=== PATIENT | male | born 1975 | race Caucasian/White ===

== ENCOUNTER 2018-08-27 10:54 | Emergency (ER) | payer OTHER, SELFPAY ==
[2018-08-27 11:08] VITALS: BP 141/84; PULSE 62; RESP 18; TEMP 36.8; O2SAT 99; BMI 37.3
--- NOTE | 2018-08-27 12:11 | DI.RAD.S_ITS ---
PROCEDURE: XR ANKLE RT MIN 3V INDICATIONS: right ankle pain and swelling TECHNIQUE: 3 views of the ankle were acquired. COMPARISON: [facility], CR, ANKLE 2 VIEWS RIGHT, 04/04/2015, 12:08. [facility], CR, ANKLE 2 VIEWS RIGHT, 04/04/2015, 12:08. [facility], , ANKLE 3 VIEWS LEFT, 08/30/2016, 16:07. FINDINGS: Bones: Remote appearing bone fragments are seen adjacent to the distal aspect of the lateral malleolus. No additional focal bony abnormality is seen. The ankle mortise does not appear widened. The talar dome demonstrates no salvador abnormality. Plantar and Achilles calcaneal spurs are seen. Soft tissues: No significant soft tissue swelling is seen. There is a 2 mm metallic-appearing foreign body involving the posterior soft tissues, which is best seen on the lateral image. IMPRESSION: Remote appearing avulsion fractures are seen involving distal aspect of the lateral malleolus. Please correlate with focal tenderness. If it would be helpful for clinical management decision making, please consider a dedicated ankle CT or MRI for further evaluation, depending upon clinical suspicion (assuming that there is no contraindication). 2 mm metallic-appearing foreign body incidentally noted posteriorly. Dictated by: James Cordero M.D. on 08/27/2018 at 11:30 Approved by: James Cordero M.D. on 08/27/2018 at 11:32
--- NOTE | 2018-08-27 12:22 | ED.LOWEXIN ---
HPI - Extremity Injury (Lower) <Opal Johnson PA-C - Last Filed: 08/27/18 17:58> General Chief Complaint: Extremity Injury, Lower Stated Complaint: RT ANKLE INJURY Time Seen by Provider: 08/27/18 11:05 Source: patient Mode of arrival: ambulatory Limitations: no limitations History of Present Illness HPI Narrative: This 43 male states that he was carrying a box yesterday when he stepped on a wheel and inverted his right ankle. He denies falling or sustaining other injury. He states that it was quite uncomfortable yesterday, especially with trying to bear weight, but he did walk on it a little bit. Was at his desk most of the day. He states that pain felt worse last night, a little bit better this morning after resting. Pain is much worse with trying to bear weight, not so bothersome at rest. He has been taking 800 mg of ibuprofen every 8 hr. He states that pain is all around the ankle, more pronounced on the outside. He states that he can feel slight tingling across his toes at times, like waking up from sleep. He denies any weakness in the ankle or foot. He has a history of 2 surgeries on that ankle, lateral for tendon repair/shortening and reattachment, and removal of cysts and veins on the medial side. Related Data Home Medications Medication Instructions Recorded Confirmed Probiotic 1 dose PO DAILY 08/27/18 08/27/18 acyclovir 400 mg PO TID PRN 08/27/18 08/27/18 ibuprofen [Advil] 1 dose PO PRN PRN 08/27/18 08/27/18 Previous Rx's Medication Instructions Recorded epinephrine 0.3 mg IM X1 #2 syr 03/13/17 hydrocodone-acetaminophen 1 tab PO Q6H PRN #7 tab 08/27/18 meloxicam 15 mg PO DAILY #14 tab 08/27/18 Allergies Allergy/AdvReac Type Severity Reaction Status Date / Time No Known Allergies Allergy Uncoded 08/27/18 11:14 Review of Systems <Opal Johnson PA-C - Last Filed: 08/27/18 17:58> Review of Systems All systems reviewed & are unremarkable except as noted in HPI and below Exam <Opal Johnson PA-C - Last Filed: 08/27/18 17:58> Narrative Exam Narrative: GENERAL APPEARANCE: Patient sitting comfortably, in no distress. LUNGS: Clear to auscultation bilaterally. HEART: Rate and rhythm regular without murmur, normal S1 and S2, no S3 or S4. MUSCULOSKELETAL: Moderate tenderness posterior inferior to the lateral malleolus, less so over the medial malleolus. Mildly tender over the anterior ankle and Achilles, which is intact by palpation. He has full range of motion of the ankle and toes nonweightbearing, tenderness with foot plantar flexion and full inversion. No tenderness over the foot or toes. NEUROVASCULAR: Right foot sensation is grossly intact, pedal pulses 2+ DP and PT, with warm pink toes Initial Vital Signs Initial Vital Signs: Vital Signs Temperature 98.2 F 08/27/18 11:08 Pulse Rate 62 08/27/18 11:08 Respiratory Rate 18 08/27/18 11:08 Blood Pressure 141/84 H 08/27/18 11:08 Pulse Oximetry 99 08/27/18 11:08 <Olvin Villalpando DO - Last Filed: 08/27/18 18:52> Initial Vital Signs Initial Vital Signs: Vital Signs Temperature 98.2 F 08/27/18 11:08 Pulse Rate 62 08/27/18 11:08 Respiratory Rate 18 08/27/18 11:08 Blood Pressure 141/84 H 08/27/18 11:08 Pulse Oximetry 99 08/27/18 11:08 Course <Opal Johnson PA-C - Last Filed: 08/27/18 17:58> Additional Information: Patient has moderate tenderness inferior to both malleoli as well as mild tenderness across the anterior ankle and Achilles. He is not more tender at the site of concern on x-rays. I spoke with Dr. Cordero who read films, reviewed previous surgeries and he advised fractures do not appear acute. Discussed option of further imaging with patient however given previous surgeries and mechanism of injury, we elected to use ALEX wrap and keep him on crutches. He will f/u with PCP next week for recheck. Advised repeat xrays and may need further imaging if not improving by that time. Orders Ordered: ED Orders 08/27/18 12:11 XR ankle RT min 3V Stat Discontinued Medications Ibuprofen (Advil) 800 mg PO NOW ONE Stop: 08/27/18 12:35 Last Admin: 08/27/18 12:53 Dose: 800 mg Vital Signs - 8 hr 08/27/18 11:08 Temperature 98.2 F Pulse Rate 62 Respiratory Rate 18 Blood Pressure 141/84 H Pulse Oximetry 99 <Olvin Villalpando DO - Last Filed: 08/27/18 18:52> Orders Ordered: ED Orders 08/27/18 12:11 XR ankle RT min 3V Stat Discontinued Medications Ibuprofen (Advil) 800 mg PO NOW ONE Stop: 08/27/18 12:35 Last Admin: 08/27/18 12:53 Dose: 800 mg Vital Signs - 8 hr 08/27/18 11:08 Temperature 98.2 F Pulse Rate 62 Respiratory Rate 18 Blood Pressure 141/84 H Pulse Oximetry 99 MDM - Extremity Injury (Lower) <Opal Johnson PA-C - Last Filed: 08/27/18 17:58> Imaging Data ankle: Radiologist's impression: [address] [address] XRay Report Signed Patient: Ernesto Carlson TMR#: [id number] : 1975Acct:[id number] Age/Sex: 43 / MDate of Service: 08/27/18 Loc: ED Accession Number: [id number] Procedure: XR ankle RT min 3V Ordering Provider: Olvin Villalpando D.O. PROCEDURE: XR ANKLE RT MIN 3V INDICATIONS: right ankle pain and swelling TECHNIQUE: 3 views of the ankle were acquired. COMPARISON: [facility], CR, ANKLE 2 VIEWS RIGHT, 04/04/2015, 12:08. [facility], CR, ANKLE 2 VIEWS RIGHT, 04/04/2015, 12:08. [facility], CR, ANKLE 3 VIEWS LEFT, 08/30/2016, 16:07. FINDINGS: Bones: Remote appearing bone fragments are seen adjacent to the distal aspect of the lateral malleolus. No additional focal bony abnormality is seen. The ankle mortise does not appear widened. The talar dome demonstrates no salvador abnormality. Plantar and Achilles calcaneal spurs are seen. Soft tissues: No significant soft tissue swelling is seen. There is a 2 mm metallic-appearing foreign body involving the posterior soft tissues, which is best seen on the lateral image. IMPRESSION: Remote appearing avulsion fractures are seen involving distal aspect of the lateral malleolus. Please correlate with focal tenderness. If it would be helpful for clinical management decision making, please consider a dedicated ankle CT or MRI for further evaluation, depending upon clinical suspicion (assuming that there is no contraindication). 2 mm metallic-appearing foreign body incidentally noted posteriorly. Dictated by: James Cordero M.D. on 08/27/2018 at 11:30 Approved by: James Cordero M.D. on 08/27/2018 at 11:32 Discharge Plan Departure Patient Disposition: Home Clinical Impression: Ankle sprain and strain Discharge Date/Time: 08/27/18 13:45 Interventions: ED Discharge Assessment Last Done: 08/27/18 13:41 Instructions: DI for Ankle Sprain Activity Restrictions/Additional Instructions: Please return if you have any acutely worsening symptoms. Otherwise, please use the Alex wrap and crutches so that you can rest your ankle. Take the anti-inflammatory pain reliever meloxicam once daily, and you have a few hydrocodone/acetaminophen if needed (do not take those and drive as they can make you sleepy). Please set up a follow-up appointment with Dr. Plata towards the end of next week. If this is not getting better, x-rays can be repeated then. I spoke with the radiologist who looked at your x-rays today and he thinks that the abnormalities there are likely old, especially since the pain around your ankle is not just in those areas on the xray. Prescriptions: New hydrocodone-acetaminophen 5-325 mg tablet 1 tab PO Q6H PRN (Reason: acute ankle pain) Qty: 7 RF: 0 meloxicam 15 mg tablet 15 mg PO DAILY Qty: 14 RF: 0 No Action epinephrine 0.3 MG/0.3 ML auto-injector 0.3 mg IM X1 Qty: 2 RF: 3 ibuprofen [Advil] 200 mg Tablet 1 dose PO PRN PRN (Reason: pain) RF: 0 Probiotic 1 dose PO DAILY RF: 0 acyclovir 400 MG tablet 400 mg PO TID PRN (Reason: Outbreak) RF: 0 Referrals: Lucas Plata MD [Primary Care Provider] - <Olvin Villalpando DO - Last Filed: 08/27/18 18:52> Cosign ED Attending Lupisature Attestation: I was immediately available in the department for consultation. Documentation has been reviewed. I agree with assessment and plan.
--- NOTE | 2018-08-27 12:34 | ED_ITS ---
HPI - Extremity Injury (Lower) <Opal Johnson PA-C - Last Filed: 08/27/18 17:58> General Chief Complaint: Extremity Injury, Lower Stated Complaint: RT ANKLE INJURY Time Seen by Provider: 08/27/18 11:05 Source: patient Mode of arrival: ambulatory Limitations: no limitations History of Present Illness HPI Narrative: This 43 male states that he was carrying a box yesterday when he stepped on a wheel and inverted his right ankle. He denies falling or sustaining other injury. He states that it was quite uncomfortable yesterday, especially with trying to bear weight, but he did walk on it a little bit. Was at his desk most of the day. He states that pain felt worse last night, a little bit better this morning after resting. Pain is much worse with trying to bear weight, not so bothersome at rest. He has been taking 800 mg of ibuprofen every 8 hr. He states that pain is all around the ankle, more pronounced on the outside. He states that he can feel slight tingling across his toes at times, like waking up from sleep. He denies any weakness in the ankle or foot. He has a history of 2 surgeries on that ankle, lateral for tendon repair/shortening and reattachment, and removal of cysts and veins on the medial side. Related Data Home Medications Medication Instructions Recorded Confirmed Probiotic 1 dose PO DAILY 08/27/18 08/27/18 acyclovir 400 mg PO TID PRN 08/27/18 08/27/18 ibuprofen [Advil] 1 dose PO PRN PRN 08/27/18 08/27/18 Previous Rx's Medication Instructions Recorded epinephrine 0.3 mg IM X1 #2 syr 03/13/17 hydrocodone-acetaminophen 1 tab PO Q6H PRN #7 tab 08/27/18 meloxicam 15 mg PO DAILY #14 tab 08/27/18 Allergies Allergy/AdvReac Type Severity Reaction Status Date / Time No Known Allergies Allergy Uncoded 08/27/18 11:14 Review of Systems <Opal Johnson PA-C - Last Filed: 08/27/18 17:58> Review of Systems All systems reviewed & are unremarkable except as noted in HPI and below Exam <Opal Johnson PA-C - Last Filed: 08/27/18 17:58> Narrative Exam Narrative: GENERAL APPEARANCE: Patient sitting comfortably, in no distress. LUNGS: Clear to auscultation bilaterally. HEART: Rate and rhythm regular without murmur, normal S1 and S2, no S3 or S4. MUSCULOSKELETAL: Moderate tenderness posterior inferior to the lateral malleolus, less so over the medial malleolus. Mildly tender over the anterior ankle and Achilles, which is intact by palpation. He has full range of motion of the ankle and toes nonweightbearing, tenderness with foot plantar flexion and full inversion. No tenderness over the foot or toes. NEUROVASCULAR: Right foot sensation is grossly intact, pedal pulses 2+ DP and PT, with warm pink toes Initial Vital Signs Initial Vital Signs: Vital Signs Temperature 98.2 F 08/27/18 11:08 Pulse Rate 62 08/27/18 11:08 Respiratory Rate 18 08/27/18 11:08 Blood Pressure 141/84 H 08/27/18 11:08 Pulse Oximetry 99 08/27/18 11:08 <Olvin Villalpando DO - Last Filed: 08/27/18 18:52> Initial Vital Signs Initial Vital Signs: Vital Signs Temperature 98.2 F 08/27/18 11:08 Pulse Rate 62 08/27/18 11:08 Respiratory Rate 18 08/27/18 11:08 Blood Pressure 141/84 H 08/27/18 11:08 Pulse Oximetry 99 08/27/18 11:08 Course <Opal Johnson PA-C - Last Filed: 08/27/18 17:58> Additional Information: Patient has moderate tenderness inferior to both malleoli as well as mild tenderness across the anterior ankle and Achilles. He is not more tender at the site of concern on x-rays. I spoke with Dr. Cordero who read films, reviewed previous surgeries and he advised fractures do not appear acute. Discussed option of further imaging with patient however given previous surgeries and mechanism of injury, we elected to use ALEX wrap and keep him on crutches. He will f/u with PCP next week for recheck. Advised repeat xrays and may need further imaging if not improving by that time. Orders Ordered: ED Orders 08/27/18 12:11 XR ankle RT min 3V Stat Discontinued Medications Ibuprofen (Advil) 800 mg PO NOW ONE Stop: 08/27/18 12:35 Last Admin: 08/27/18 12:53 Dose: 800 mg Vital Signs - 8 hr 08/27/18 11:08 Temperature 98.2 F Pulse Rate 62 Respiratory Rate 18 Blood Pressure 141/84 H Pulse Oximetry 99 <Olvin Villalpando DO - Last Filed: 08/27/18 18:52> Orders Ordered: ED Orders 08/27/18 12:11 XR ankle RT min 3V Stat Discontinued Medications Ibuprofen (Advil) 800 mg PO NOW ONE Stop: 08/27/18 12:35 Last Admin: 08/27/18 12:53 Dose: 800 mg Vital Signs - 8 hr 08/27/18 11:08 Temperature 98.2 F Pulse Rate 62 Respiratory Rate 18 Blood Pressure 141/84 H Pulse Oximetry 99 MDM - Extremity Injury (Lower) <Opal Johnson PA-C - Last Filed: 08/27/18 17:58> Imaging Data ankle: Radiologist's impression: [address] [address] XRay Report Signed Patient: Ernesto Carlson TMR#: [id number] : 1975Acct:[id number] Age/Sex: 43 / MDate of Service: 08/27/18 Loc: ED Accession Number: [id number] Procedure: XR ankle RT min 3V Ordering Provider: Olvin Villalpando D.O. PROCEDURE: XR ANKLE RT MIN 3V INDICATIONS: right ankle pain and swelling TECHNIQUE: 3 views of the ankle were acquired. COMPARISON: [facility], CR, ANKLE 2 VIEWS RIGHT, 04/04/2015, 12:08. [facility], CR, ANKLE 2 VIEWS RIGHT, 04/04/2015, 12:08. [facility], CR, ANKLE 3 VIEWS LEFT , 08/30/2016, 16:07. FINDINGS: Bones: Remote appearing bone fragments are seen adjacent to the distal aspect of the lateral malleolus. No additional focal bony abnormality is seen. The ankle mortise does not appear widened. The talar dome demonstrates no salvador abnormality. Plantar and Achilles calcaneal spurs are seen. Soft tissues: No significant soft tissue swelling is seen. There is a 2 mm metallic-appearing foreign body involving the posterior soft tissues, which is best seen on the lateral image. IMPRESSION: Remote appearing avulsion fractures are seen involving distal aspect of the lateral malleolus. Please correlate with focal tenderness. If it would be helpful for clinical management decision making, please consider a dedicated ankle CT or MRI for further evaluation, depending upon clinical suspicion (assuming that there is no contraindication). 2 mm metallic-appearing foreign body incidentally noted posteriorly. Dictated by: James Cordero M.D. on 08/27/2018 at 11:30 Approved by: James Cordero M.D. on 08/27/2018 at 11:32 Discharge Plan Departure Patient Disposition: Home Clinical Impression: Ankle sprain and strain Discharge Date/Time: 08/27/18 13:45 Interventions: ED Discharge Assessment Last Done: 08/27/18 13:41 Instructions: DI for Ankle Sprain Activity Restrictions/Additional Instructions: Please return if you have any acutely worsening symptoms. Otherwise, please use the Alex wrap and crutches so that you can rest your ankle. Take the anti- inflammatory pain reliever meloxicam once daily, and you have a few hydrocodone/ acetaminophen if needed (do not take those and drive as they can make you sleepy ). Please set up a follow-up appointment with Dr. Plata towards the end of next week. If this is not getting better, x-rays can be repeated then. I spoke with the radiologist who looked at your x-rays today and he thinks that the abnormalities there are likely old, especially since the pain around your ankle is not just in those areas on the xray. Prescriptions: New hydrocodone-acetaminophen 5-325 mg tablet 1 tab PO Q6H PRN (Reason: acute ankle pain) Qty: 7 RF: 0 meloxicam 15 mg tablet 15 mg PO DAILY Qty: 14 RF: 0 No Action epinephrine 0.3 MG/0.3 ML auto-injector 0.3 mg IM X1 Qty: 2 RF: 3 ibuprofen [Advil] 200 mg Tablet 1 dose PO PRN PRN (Reason: pain) RF: 0 Probiotic 1 dose PO DAILY RF: 0 acyclovir 400 MG tablet 400 mg PO TID PRN (Reason: Outbreak) RF: 0 Referrals: Lucas Plata MD [Primary Care Provider] - <Olvin Villalpando DO - Last Filed: 08/27/18 18:52> Cosign ED Attending Lupisature Attestation: I was immediately available in the department for consultation. Documentation has been reviewed. I agree with assessment and plan.
[2018-08-27] MEDS: IBUPROFEN 400 MG TABLET 800 MG PO (12:53)
== END 2018-08-27 13:45 | disposition home or self-care (01) ==
PROVIDERS: Emergency Provider Internal Medicine; Family Provider Family Medicine; PCP Family Medicine
DX: S93.401A Sprain of unspecified ligament of right ankle, initial encounter (principal); W18.41XA Slipping, tripping and stumbling without falling due to stepping on object, initial encounter
CPT/HCPCS: 73610; 99282; 99283

== ENCOUNTER → 2019-06-25 09:15 | Outpatient (CLI) | payer OTHER, SELFPAY ==
[2019-06-25 09:56] LABS: Semen Sperm Prescence Post-Vas Absent (ABSENT)
== END ==
PROVIDERS: Family Provider Family Medicine; PCP Family Medicine; Visit Provider Specialist
DX: Z30.2 Encounter for sterilization (principal)
CPT/HCPCS: 89321

== ENCOUNTER → 2019-11-28 11:13 | Outpatient (CLI) | payer OTHER, SELFPAY ==
--- NOTE | 2019-11-28 13:06 | DI.CT.S_ITS ---
PROCEDURE: CT ABDOMEN PELVIS W CON INDICATIONS: Periumbilical pain TECHNIQUE: After the administration of oral and intravenous contrast, 5 mm thick sections acquired from the diaphragms to the symphysis. 5 mm thick coronal and sagittal reformats were performed. For radiation dose reduction, the following was used: automated exposure control, adjustment of mA and/or kV according to patient size. COMPARISON: [facility], CT, ABDOMEN/PELVIS WITH CONTRAST, 02/15/2018, 11:52. FINDINGS: Image quality: Excellent. ABDOMEN: Lung bases: Lung bases are clear. Left pulmonary nodule measuring 3 mm unchanged, therefore likely granulomatous sequela. Heart size is normal. Solid organs: Mild hepatic steatosis. Gallbladder unremarkable. Biliary system is non-dilated. Pancreas enhances normally. Spleen is normal in size and enhancement. No adrenal nodules. Ectopic left pelvic kidney as before. No hydronephrosis. Peritoneum and bowel: Stomach, small bowel, and colon loops are normal in caliber and wall thickness. No free fluid or air. Normal appendix Nodes and vessels: No retroperitoneal or mesenteric adenopathy. Aorta and inferior vena cava are normal in caliber. Miscellaneous: Fat-containing umbilical hernia appears grossly unchanged. PELVIS: Genitourinary: Bladder wall thickness is normal. Miscellaneous: No inguinal hernias or adenopathy. Bones: No suspicious bony lesions. No vertebral body compression fractures. Mild anterior wedging of the T11 and T12 vertebral bodies which appears unchanged, possibly physiologic IMPRESSION: Overall, no acute process. Normal appendix. Unchanged appearance of fat-containing umbilical hernia. Mild hepatic steatosis. Elsewhere, grossly stable examination as above Dictated by: Pranav Crowell M.D. on 11/28/2019 at 15:20 Approved by: Pranav Crowell M.D. on 11/28/2019 at 15:26
== END ==
PROVIDERS: Family Provider Family Medicine; PCP Family Medicine; Referring Provider Family Medicine; Visit Provider Family Medicine
DX: R10.33 Periumbilical pain (principal); K76.0 Fatty (change of) liver, not elsewhere classified; K42.9 Umbilical hernia without obstruction or gangrene
CPT/HCPCS: 74177; Q9967

== ENCOUNTER 2020-01-02 12:26 | Day surgery (SDC) | payer OTHER, SELFPAY ==
[2019-12-30 10:25] VITALS: BMI 38.7
[2020-01-02] VITALS (9 sets, daily range): BP systolic 106–141; BP diastolic 69–87; PULSE 55–83; RESP 11–19; TEMP 36.1–36.7; O2SAT 95–99; BMI 38.7
--- NOTE | 2020-01-02 14:22 | PM.PREOP ---
Pre-operative Note Interval Note History & Physical reviewed/Exam performed by Physician: Yes Changes to H&P: No
--- NOTE | 2020-01-02 14:33 | PM.PREOP ---
Pre-operative Note Interval Note History & Physical reviewed/Exam performed by Physician: Yes Changes to H&P: No
[2020-01-02] MEDS: LACTATED RINGERS 1,000 ML 42 ML IV (14:51)
[2020-01-02] MEDS: CEFAZOLIN 2 GM/100 ML FROZ.PIGGY IV (15:45)
--- NOTE | 2020-01-02 16:02 | SUR.OPER ---
Supine on padded OR bed, head on pillow, arms secured on padded arm boards at <90 degrees abduction, legs uncrossed, safety belt at thigh, tape over blanket over lower legs.
[2020-01-02] MEDS: BUPIVACAINE 0.5% (PF) VIAL 30 ML INJ (16:06)
--- NOTE | 2020-01-02 16:40 | PM.OP.1 ---
Operative Date/Time/Diagnoses Date of procedure: 01/02/20 Time of procedure: 16:40 Pre-op diagnosis: Umbilical hernia reducible Post-op diagnosis: same Procedure & Clinicians Procedure: Repair with underlay of mesh Same procedure as scheduled: Yes Indications: Symptomatic umbilical hernia Surgeon: Brett Castelan Click Yes if Unassisted: Yes Anesthesia Type: General Operative Notes Findings: Small defect. I was able to put a 1.7 in diameter piece of Ventralex mesh under the fascia in the preperitoneal space Closure Type: primary Specimen(s): none sent Prosthetic devices, grafts, tissues, transplants, or devices: Ventralex mesh 1.7 in round mesh with a tail Estimated Blood Loss (mL): 5 Blood products transfused: none Procedure in detail: The patient was placed supine on the operating room table and underwent general LMA anesthesia. He was prepped and draped in the usual fashion. A field block anesthetic was administered around the umbilicus. A curvilinear incision was made in the infraumbilical fold. The incision was carried down level the fascia. Hernia sac was from the surrounding structures entered and dissected off the overlying umbilicus. The fascial edge was cleared the sac removed and the contents of preperitoneal fat were reduced. Fascial edge was cleared in the underside also cleared back to allow for placement of 1.7 in diameter Ventralex mesh. The mesh tails were incorporated into the closure. Closure was with 0 Ethibond suture. The umbilicus was tacked down to the fascia with 3 0 Vicryl. The subcu was closed with interrupted 3 0 Vicryl. The skin was closed running 4 0 Vicryl subcuticular stitch in interrupted 4 0 nylon sutures. Dressing was applied the patient was awakened extubated taken recovery area in good condition Complications: none Post-operative Condition: stable Disposition: PACU
[2020-01-02] MEDS: KETOROLAC 30 MG/ML VIAL IV (16:46)
[2020-01-02] MEDS: fentaNYL 100 MCG/2 ML INJ IV (16:48)
[2020-01-02] MEDS: OXYCODONE/ACETAMINOPHEN 5/325 TABLET 1 TAB PO (17:40)
== END 2020-01-02 18:09 | disposition home or self-care (01) ==
PROVIDERS: Family Provider Family Medicine; PCP Family Medicine; Referring Provider Family Medicine; Visit Provider Specialist
PROC: (CPT 49585; principal; 2020-01-02 13:45)
DX: K42.9 Umbilical hernia without obstruction or gangrene (principal); J45.909 Unspecified asthma, uncomplicated; I10 Essential (primary) hypertension; G47.30 Sleep apnea, unspecified
CPT/HCPCS: 49585; C1781; J0690; J1100; J1885; J2250; J2405; J2704; J3010

== ENCOUNTER → 2020-03-05 16:06 | Outpatient (CLI) | payer OTHER, SELFPAY ==
--- NOTE | 2020-03-05 16:07 | DI.MRI.S_ITS ---
PROCEDURE: MR CERVICAL SPINE WO CON INDICATIONS: Radiculopathy, cervical region TECHNIQUE: Noncontrast sagittal T1 spin echo and T2 fast spin echo, sagittal STIR, foraminal oblique sagittal T2 fast spin echo, and axial gradient echo or T2 fast spin echo through the cervical spine. COMPARISON: None. FINDINGS: Image quality: This examination is limited by involuntary motion artifact. Alignment and Curvature: There is straightening of the normal cervical lordosis. No focal AP alignment abnormality is seen. Bone Marrow: Marrow demonstrates normal overall signal. Spinal Cord: Visualized spinal cord has normal size and signal. No cerebellar tonsillar herniation. Paraspinous Soft Tissues: No paravertebral masses. Prevertebral soft tissues are normal in thickness. C2-C3: No significant abnormality is seen. C3-C4: The disc height is well-preserved. Loss of disc signal is seen at this level. A mild degree of generalized disc osteophyte complex is seen. Mild to moderate facet hypertrophy is seen. No significant neural foraminal narrowing is seen. Mild to moderate central canal narrowing is seen. C4-C5: The disc height is well-preserved. Loss of disc signal is seen at this level. Moderate generalized disc osteophyte complex is seen. Moderate facet joint hypertrophy is seen. There is moderate to severe right-sided and moderate left-sided neural foraminal narrowing seen. Mild to moderate central canal narrowing is seen. There is associated mass effect upon the ventral spinal cord. C5-C6: Mild to moderate loss of disc height and disc signal are seen. At least moderate disc osteophyte complex is seen, with a central disc osteophyte protrusion. There is moderate bilateral facet hypertrophy seen, right worse than left. There is moderate to severe bilateral neural foraminal narrowing seen. Moderate to severe central canal narrowing is seen. There is associated mass effect upon the ventral spinal cord. C6-C7: Evaluation this level is limited by motion artifact. Moderate loss of disc height is seen. Loss of disc signal is seen. At least moderate disc osteophyte complex is seen, with a left lateral recess/foraminal disc osteophyte protrusion seen. Moderate facet joint hypertrophy is seen. There is moderate to severe bilateral neural foraminal narrowing seen. Moderate to severe central canal narrowing is seen. There is associated mass effect upon the ventral spinal cord. C7-T1: Evaluation of this level is limited by motion artifact. The disc height and disc signal are relatively well-preserved. There is believed to be mild disc osteophyte complex. There is moderate to severe left-sided and moderate right-sided neural foraminal narrowing seen. Mild central canal narrowing is seen. IMPRESSION: Multiple levels of degenerative change are seen, which are most prominent at the C6-C7 level. Dictated by: James Cordero M.D. on 03/05/2020 at 16:08 Approved by: James Cordero M.D. on 03/05/2020 at 16:12
== END ==
PROVIDERS: Family Provider Family Medicine; PCP Family Medicine; Referring Provider Family Medicine; Visit Provider Family Medicine
DX: M47.22 Other spondylosis with radiculopathy, cervical region (principal)
CPT/HCPCS: 72141

== ENCOUNTER 2020-09-17 09:03 | Day surgery (SDC) | payer OTHER, SELFPAY ==
[2020-09-17] VITALS (16 sets, daily range): BP systolic 108–151; BP diastolic 64–96; PULSE 48–70; RESP 9–18; TEMP 36.1–36.6; O2SAT 96–99; BMI 38.5
[2020-09-17] MEDS: LACTATED RINGERS 1,000 ML 100 ML IV (10:11)
--- NOTE | 2020-09-17 10:15 | PM.PREOP ---
Pre-operative Note COVID-19 COVID-19 status: Negative Result date/Date tested (Pos, Neg/Pending): 09/14/20 Interval Note History & Physical reviewed/Exam performed by Physician: Yes Changes to H&P: No
--- NOTE | 2020-09-17 10:22 | SUR.OPER ---
Supine on padded OR bed, head on pillow, arms secured on padded arm boards at <90 degrees abduction, legs uncrossed, safety belt at thigh, tape over blanket over lower legs.
[2020-09-17] MEDS: CEFAZOLIN 2 GM/100 ML FROZ.PIGGY IV (10:38)
[2020-09-17] MEDS: BUPIVACAINE 0.5% (PF) VIAL 30 ML INJ (11:09)
--- NOTE | 2020-09-17 12:22 | P.OP_ITS ---
Operative Date/Time/Diagnoses Date of procedure: 09/17/20 Time of procedure: 12:08 Pre-op diagnosis: Ventral hernia incarcerated Post-op diagnosis: same Procedure & Clinicians Procedure: Repair of ventral hernia with underlay of mesh Same procedure as scheduled: Yes Indications: Patient is a gentleman with a hernia that is above his but umbi licus and separate from a prior hernia that was repaired there. It is a ventral hernia and is not reducible. Surgeon: Brett Castelan Click Yes if Unassisted: Yes Anesthesia Type: General Operative Notes Findings: Small defect with preperitoneal fat incarcerated in the hernia. Closure Type: primary Specimen(s): none sent Prosthetic devices, grafts, tissues, transplants, or devices: 2.5 in diameter Ventralex mesh Applied: catheter Estimated Blood Loss (mL): 10 Blood products transfused: none Procedure in detail: Patient was placed supine on the operating table and underwent general LMA anesthesia. He was prepped and draped in the usual fashion. Vertical incision was made overlying the hernia and carried down to the level the fascia. The hernia sac was from the subcu and the fascial edge cleared. The hernia sac was removed and the contents reduced with some difficulty. I cleared the peritoneum and submuscular fat off the abdominal wall circumferentially so that I could place a 2.5 in diameter mesh under the defect. The subcu fat was off of the underlying muscle fascia and I placed 0 Ethibond sutures down through fascia down through mesh up through mesh and up through fascia in a U-stitch fashion. This was done circumferentially. The hernia defect was closed inferior to superior using 0 Ethibond. The patient had local anesthetic infiltrated and the subcu was closed with interrupted 3 0 Vicryl. The skin was closed a running 4-0 Vicryl subcuticular stitch and Steri- Strips. Dressing was applied and the patient tolerated the procedure well. Complications: none Post-operative Condition: stable Disposition: PACU Plan for aftercare: In the office
[2020-09-17] MEDS: fentaNYL 100 MCG/2 ML INJ IV ×2 (12:26→12:44)
[2020-09-17] MEDS: HYDROMORPHONE 2 MG INJ IV ×2 (12:27→12:43)
[2020-09-17] MEDS: OXYCODONE/ACETAMINOPHEN 5/325 TABLET 1 TAB PO (12:44)
== END 2020-09-17 13:39 | disposition home or self-care (01) ==
PROVIDERS: Family Provider Family Medicine; PCP Family Medicine; Referring Provider Specialist; Visit Provider Specialist
PROC: (CPT 49561; principal; 2020-09-17 10:45)
DX: K43.6 Other and unspecified ventral hernia with obstruction, without gangrene (principal); J45.909 Unspecified asthma, uncomplicated; G47.33 Obstructive sleep apnea (adult) (pediatric); R20.0 Anesthesia of skin
CPT/HCPCS: 49561; 49568; 82962; C1781; J0690; J1100; J1170; J1885; J2250; J2405; J2704; J3010

== ENCOUNTER → 2022-06-28 11:11 | Outpatient (CLI) | payer OTHER, SELFPAY ==
--- NOTE | 2022-06-28 11:14 | DI.CT.S_ITS ---
PROCEDURE: CT ABDOMEN PELVIS W CON INDICATIONS: Abdominal pain TECHNIQUE: After the administration of oral and IV contrast, axial sections were acquired from the lung bases to the pubic symphysis. Coronal and sagittal reformats were performed. For radiation dose reduction, the following was used: automated exposure control, adjustment of mA and/or kV according to patient size. COMPARISON: [facility], CT, CT ABDOMEN PELVIS W CON, 11/28/2019, 12:02. [facility], CT, ABDOMEN/PELVIS WITH CONTRAST, 02/15/2018, 11:52. FINDINGS: Image quality: Excellent. Lung bases: Unremarkable. Heart: No significant findings. ABDOMEN: Liver: The liver is hypoattenuating, consistent with fatty infiltration. Focal fatty sparing is seen in the gallbladder fossa. Gallbladder: Unremarkable. Biliary ducts: Unremarkable. Pancreas: Unremarkable. Spleen: Unremarkable. Adrenal Glands: No adrenal nodules. Left adrenal appears elongated, as before. 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 No hydronephrosis or nephrolithiasis. Right kidney is normal in location and appearance. Stomach and Bowel: Stomach, small bowel loops, and colon are unremarkable. Normal appendix. Peritoneum: No abnormal intraperitoneal fluid. No free air. Ventral Wall: Moderate fat containing periumbilical hernia. Abdominal Nodes: No retroperitoneal or mesenteric adenopathy by size criteria. Vessels: Aorta and inferior vena cava are normal in size. PELVIS: Pelvic Organs: Unremarkable. Bladder: Unremarkable. Pelvic Nodes: No enlarged lymph nodes. Miscellaneous: No inguinal hernias are seen. Bones: Unremarkable. IMPRESSION: 1. No acute abnormality is seen in the abdomen or pelvis. Normal appendix. 2. Stable fat containing umbilical hernia. 3. Diffuse hepatic steatosis. 4. Ectopic left kidney with stable appearance. Dictated by: Henry Doan M.D. on 06/28/2022 at 16:19 Approved by: Henry Doan M.D. on 06/28/2022 at 16:24
== END ==
PROVIDERS: Family Provider Family Medicine; PCP Family Medicine; Referring Provider Surgery; Visit Provider Surgery
DX: R10.9 Unspecified abdominal pain (principal); K42.9 Umbilical hernia without obstruction or gangrene; K76.0 Fatty (change of) liver, not elsewhere classified; Q63.2 Ectopic kidney
CPT/HCPCS: 74177; Q9967

== ENCOUNTER → 2022-07-02 07:00 | Outpatient (CLI) | payer OTHER, SELFPAY ==
[2022-07-02 21:14] LABS: COVID19 - ORCAS (NP or Nasal) POSITIVE (Negative)
== END ==
PROVIDERS: Family Provider Family Medicine; PCP Family Medicine; Visit Provider Physician Assistant
DX: Z01.812 Encounter for preprocedural laboratory examination (principal); U07.1 COVID-19; Z20.822 Contact with and (suspected) exposure to COVID-19
CPT/HCPCS: U0003

== ENCOUNTER → 2022-09-03 07:05 | Outpatient (CLI) | payer OTHER, SELFPAY ==
[2022-09-03 20:16] LABS: COVID19 - ORCAS (NP or Nasal) Negative (Negative)
== END ==
PROVIDERS: Family Provider Family Medicine; PCP Family Medicine; Visit Provider Physician Assistant
DX: Z20.822 Contact with and (suspected) exposure to COVID-19 (principal); Z01.812 Encounter for preprocedural laboratory examination
CPT/HCPCS: U0003

== ENCOUNTER 2022-09-05 08:33 | Day surgery (SDC) | payer OTHER, SELFPAY ==
--- NOTE | 2022-09-05 | PATH_ITS ---
[facility] Accession Number: [id number] . 01 Material submitted: . colon - DESCENDING COLON POLYP . 01 Diagnosis: Descending Colon Polyp, Biopsy: Tubular adenoma. MRV 09/08/2022 1316 Local . 01 Electronically signed: . Giancarlo Estes MD, PhD, Pathologist NPI- [id number] . 01 Gross description: . DESCENDING COLON POLYP: Received in formalin is 1 fragment(s) of lai, soft tissue measuring 0.3 x 0.2 x 0.2 cm submitted entirely in 1 cassette(s) /CPE 09/06/2022 0810 Local . 01 Pathologist provided ICD-10: D12.4 . 01 CPT . 874855 Specimen Comment: A courtesy copy of this report has been sent to [phone] Performed at: 01 [facility] [address] [place] [address] [id number] MD Jeet Del Toro MD Phone: [phone]
[2022-09-05 08:51] VITALS: BP 149/94; PULSE 64; RESP 18; TEMP 36.3; O2SAT 100; BMI 39.4
[2022-09-05] MEDS: LACTATED RINGERS 1,000 ML 100 ML IV (08:59)
--- NOTE | 2022-09-05 09:20 | PM.HP.1 ---
History of Present Illness History of Present Illness Date Patient Seen: 09/05/22 Time Patient Seen: 09:25 Chief complaint: NDC Narrative: colon cancer screening. Family history with grandfather had colon cancer. Patient History Medical History Asthma Back pain Depression Epiploic appendagitis Genital herpes HTN (hypertension) Pneumonia Sleep apnea Surgical History H/O laminectomy (~08/28/20) H/O left wrist surgery (2013) History of ankle surgery History of surgery on wrist (2013) Hx of hand surgery Status post umbilical hernia repair, follow-up exam Family & Social History Family History Father Age: 70 Cancer Melanoma Grandfather Lung cancer Heart disease Grandfather Cancer Mother Hypertension Social History: household members spouse,children Tobacco & Substance use: Tobacco type cigarettes,cigars Smoking Status Former smoker alcohol intake current alcohol intake frequency a few times a week Substance Use Type marijuana Meds Home Medications and Allergies Home Medications Medication Instructions Recorded Confirmed Type acyclovir 400 mg tablet 400 mg PO TID PRN Outbreak 08/27/18 09/05/22 History ibuprofen 200 mg tablet (Advil) 400 mg PO PRN PRN pain 08/27/18 09/05/22 History albuterol sulfate 90 mcg/actuation 1 inhalation inhalation Q4-6H PRN 12/07/19 09/05/22 History breath activated powder inhaler Shortness Of Breath tmaojua-vieuhaafmaifz-zwzuijfu 250 1 tab PO Q4-6H PRN Migraine 12/07/19 09/05/22 History mg-250 mg-65 mg tablet (Excedrin Headache Extra Strength) losartan 25 mg tablet 50 mg PO DAILY 12/07/19 09/05/22 History epinephrine 0.3 mg/0.3 mL 0.3 mg IM X1 PRN Allergic Reaction 12/30/19 09/05/22 History injection, auto-injector fluticasone propionate 50 1 spray intranasal DAILY 12/30/19 09/05/22 History mcg/actuation nasal spray,suspension acetaminophen 500 mg capsule 1,000 mg PO BID 09/17/20 09/05/22 History metformin 500 mg tablet,extended 500 mg PO BID 09/05/22 09/05/22 History release 24 hr Allergies Allergy/AdvReac Type Severity Reaction Status Date / Time bee venom protein (honey bee) Allergy Severe Anaphylaxis Verified 09/05/22 08:43 Review of Systems Review of Systems ROS: Yes All systems reviewed with the patient and are negative except as otherwise documented Exam Vital Signs (past 8 hours): - 09/05/22 08:51 Temperature 97.3 F L Pulse Rate 64 Respiratory Rate 18 Blood Pressure 149/94 H Pulse Oximetry 100 Oxygen Delivery Method Room Air Oxygen Delivery Method Room Air Const General: cooperative and healthy appearing [facility] Head: normal to inspection, normocephalic and atraumatic Eyes General: appearance normal, both eyes and all related structures Neck Neck: normal visual inspection, full ROM and trachea midline Chest Chest: normal inspection of the chest Resp Effort & Inspection: normal respiratory effort and able to speak in complete sentences Cardio Rate: regular rate Rhythm: regular rhythm GI Inspection: visible herniation Palpation: soft Back/Spine/Pelvis Back: normal to inspection Skin General: no rashes or lesions noted Neuro General: patient alert, patient awake and patient oriented x3 Extrem General: normal to inspection and full ROM Psych Appearance: grossly normal Mental Status: mental status grossly normal Judgment: judgment good Assessment & Plan Assessment & Plan narrative: colon cancer screening using colonoscopy w MAC COVID-19 COVID-19 status: Negative Time Spent With Patient Time with patient: less than 30 minutes Critical Care time: I spent a total of [] minutes of critical care time on this patient's care today; this time is exclusive of procedural time.
--- NOTE | 2022-09-05 09:44 | PM.OP.COLON ---
Operative Date/Time/Diagnoses Date of procedure: 09/05/22 Time of procedure: 09:44 Pre-op diagnosis: colon cancer screening Post-op diagnosis: same Procedure & Clinicians Study performed: Colonoscopy with cold forceps polypectomy Same procedure as scheduled: Yes Indications: Colon cancer screening Surgeon: Isis Etienne Procedure Notes Procedure in detail: Preop diagnosis: Colon cancer screening Postop diagnosis: Same Operative procedure: Colonoscopy using MAC, cold forceps polypectomy Surgeon: Marilyn Etienne MD Findings: Single polyp in the proximal descending colon taken with cold forceps Procedure: Patient placed in a lateral position. Rectal exam performed showing normal tone no masses. Colonoscope inserted into the rectum and advanced to ileocecal valve with minimal difficulty. Insufflation extraction of the scope and the above findings. Retroflex was included in the rectum. Impression: Single 4 mm sessile polyp in the proximal descending colon. No diverticulosis. Plan: Repeat colonoscopy in 5 years. Findings: polyp(s) Specimen(s): other (Proximal descending colon polyp, sessile, 4 mm) Complications: none Post-procedure Recommendations: Colonoscopy in 5 years Follow up: as needed Disposition: PACU
[2022-09-05 09:47] VITALS: BP 149/89; PULSE 75; RESP 16; TEMP 36.9; O2SAT 99
[2022-09-05 09:52] VITALS: BP 113/79; PULSE 67; RESP 16; O2SAT 97
[2022-09-05 09:57] VITALS: BP 131/80; PULSE 61; RESP 18; O2SAT 97
[2022-09-05 10:10] VITALS: BP 131/80; PULSE 65; RESP 16; TEMP 36.3; O2SAT 97
== END 2022-09-05 10:25 | disposition home or self-care (01) ==
PROVIDERS: Surgery; Family Provider Family Medicine; PCP Family Medicine; Referring Provider Surgery; Visit Provider Surgery
PROC: 0DJD8ZZ Inspection of Lower Intestinal Tract, Via Natural or Artificial Opening Endoscopic (ICD-10-PCS; CPT 45378; principal; 2022-09-05 09:15)
DX: Z12.11 Encounter for screening for malignant neoplasm of colon (principal); D12.4 Benign neoplasm of descending colon
CPT/HCPCS: 45380; J2250; J2704

== ENCOUNTER → 2023-02-24 08:39 | Outpatient (CLI) | payer OTHER, SELFPAY ==
[2023-02-24 10:14] LABS: Erythrocyte Sedimentation Rate 1 MM/HR (0-15)
[2023-02-24 12:01] LABS: Alanine Aminotransferase 59 IU/L (<50); Albumin 4.3 g/dL (3.5-5.0); Albumin Globulin Ratio 1.6 (1.0-2.8); Alkaline Phosphatase 60 U/L (38-126); Aspartate Aminotransferase 33 IU/L (17-59); BUN Creatinine Ratio 21.7 (6-22); Bilirubin Total 0.9 mg/dL (0.2-1.3); Blood Urea Nitrogen 18 mg/dL (9-20); C-Reactive Protein Quant 0.5 mg/dL (<1.0); Calcium 9.1 mg/dL (8.4-10.2); Carbon Dioxide 25 mmol/L (22-32); Chloride 104 mmol/L (98-107); Estimated Glomerular Filt Rate > 60 mL/min (>60); Globulin 2.7 g/dL (1.7-4.1); Glucose 98 mg/dL (70-100); HEMOLYSIS < 15 (0-50); Potassium 4.6 mmol/L (3.4-5.1); Sodium 137 mmol/L (137-145)
[2023-02-24 23:23] LABS: x Labcorp Estim. Avg Glu (eAG) 120 mg/dL (.); x Labcorp Hemoglobin A1c 5.8 % (4.8-5.6)
== END ==
PROVIDERS: Family Provider Family Medicine; PCP Family Medicine; Referring Provider Family Medicine; Visit Provider Family Medicine
DX: H53.40 Unspecified visual field defects (principal); I10 Essential (primary) hypertension; R73.01 Impaired fasting glucose
CPT/HCPCS: 36415; 80053; 83036; 85651; 86140

== ENCOUNTER 2023-02-24 16:43 | Emergency (ER) | payer OTHER, SELFPAY ==
[2023-02-24] VITALS (9 sets, daily range): BP systolic 136–222; BP diastolic 89–125; PULSE 55–83; RESP 16–37; TEMP 37; O2SAT 97–100; BMI 39.4
--- NOTE | 2023-02-24 16:56 | DI.RAD.S_ITS ---
PROCEDURE: XR CHEST 1V INDICATIONS: chest pain TECHNIQUE: One view of the chest was acquired. COMPARISON: [facility], , CHEST 1 VIEW, 09/01/2015, 0:11. FINDINGS: Surgical changes and devices: None. Lungs and pleura: Lungs are clear. No pleural effusions or pneumothorax. Mediastinum: Mediastinal contours appear normal. Heart size is normal. Bones and chest wall: No suspicious bony lesions. Overlying soft tissues appear unremarkable. IMPRESSION: No acute cardiopulmonary abnormalities or focal airspace disease. Dictated by: Anthony Thompson M.D. on 02/24/2023 at 18:04 Approved by: Anthony Thompson M.D. on 02/24/2023 at 18:05
--- NOTE | 2023-02-24 17:19 | DI.CT.S_ITS ---
PROCEDURE: CT ANGIO HEAD AND NECK INDICATIONS: visiual changes with htn TECHNIQUE: Pre-contrast 4.5 mm thick sections acquired from the foramen magnum to the vertex. After the administration of intravenous contrast, 1 mm thick sections acquired from the aortic arch through the Bradley of Burns. Post-contrast 4.5 mm thick sections then re-acquired from the foramen magnum to the vertex. 3-dimensional tivkodt-ddpxmufkm-qxezpbaulb (MIP) and/or volume rendering reformats were acquired of the central intracranial vasculature and neck separately. For radiation dose reduction, the following was used: automated exposure control, adjustment of mA and/or kV according to patient size. COMPARISON: None. FINDINGS: Image quality: Excellent. BRAIN: CSF spaces: Ventricles are normal in size and shape. Basal cisterns are patent. No extra-axial fluid collections. Brain: No midline shift. No intracranial bleeds or masses. Collins-white matter interface appears intact. Skull and face: Calvarium and facial bones appear intact, without suspicious lesions. Orbits appear normal. Sinuses: Scattered ethmoid and bilateral maxillary sinus mucosal thickening. Bilateral mastoid air cells are clear. HEAD CT ANGIOGRAPHY: Anterior circulation: Intracranial internal carotid arteries appear patent without high-grade stenosis. There is flow/opacification within the paired anterior cerebral arteries. There is opacification within the middle cerebral arteries. The anterior communicating artery is seen. No aneurysms are seen. No occlusion. Posterior circulation: Visualized portions of the vertebral arteries are patent and join to form a normal appearing basilar artery. No evidence for high-grade stenosis. No occlusions. There is opacification of the posterior cerebral arteries. No aneurysms are seen. NECK CT ANGIOGRAPHY: Carotid system: The great vessels demonstrate a conventional anatomy as they arise from the aortic arch. The origins of the common carotid arteries appear patent. The common carotid arteries appear patent throughout their visualized courses without high grade stenosis. The bifurcation regions are both patent without high grade stenosis. The internal carotid arteries demonstrate normal calibers and courses. Posterior circulation: The origins of the vertebral arteries both appear patent without hemodynamically significant stenosis. The more superior extracranial portions of both vertebral arteries also demonstrate normal courses and calibers. They join to form a normal appearing basilar artery. Soft tissues: Visualized neck soft tissues demonstrate no suspicious abnormalities. Bones: No suspicious bony lesions. Straightening of cervical lordosis which may be due to patient positioning and/or concurrent muscle spasms. No acute compression fractures of the vertebral bodies. Moderate multilevel cervical spondylosis most severe at C6-7. IMPRESSION: 1. CT head without acute intracranial abnormalities or acute hemorrhage. No evidence for mass or mass effect. 2. Negative CT angiogram of the intracranial and neck arterial vasculature. 3. Scattered ethmoid and bilateral maxillary sinus disease. 4. Multilevel cervical spondylosis. Any quantitative measurements of stenosis were performed using NASCET criteria. Dictated by: Anthony Thompson M.D. on 02/24/2023 at 18:05 Approved by: Anthony Thompson M.D. on 02/24/2023 at 18:10
[2023-02-24 17:41] LABS: Add Manual Diff / Slide Review NO; Basophils Absolute Auto 100 /uL (0-100); Basophils Percent Auto 1.1 % (0-2); Eosinophils Absolute Auto 200 /uL (0-450); Eosinophils Percent Auto 2.8 % (2-4); Hematocrit 43.7 % (41-53); Hemoglobin 15.2 g/dL (13.5-17.5); Lymphocytes Absolute Auto 2400 /uL (1100-4500); Lymphocytes Percent Auto 33.7 % (25-40); Mean Corpuscular HGB Conc 34.9 % (30-36); Mean Corpuscular Hemoglobin 30.6 PG (26-34); Mean Corpuscular Volume 87.6 fL (80-100); Monocytes Absolute Auto 700 /uL (0-900); Monocytes Percent Auto 9.9 % (3-14); Neutrophils Absolute Auto 3800 /uL (1500-7000); Neutrophils Percent Auto 52.5 % (50-75); Platelet Count 183 X10^3/uL (150-400); Red Blood Cell Count 4.99 X10^6/uL (4.5-5.9); Red Cell Distribution Width 13.2 % (11.6-14.8); White Blood Cell Count 7.2 X10^3/uL (4.5-11.0)
[2023-02-24 17:50] LABS: INR 1.1 (0.9-1.3); Prothrombin Time 12.1 SECONDS (10.1-12.7)
[2023-02-24 17:53] LABS: PTT Partial Thromboplastin Tim 33 SECONDS (26-36)
[2023-02-24 17:54] LABS: Alanine Aminotransferase 56 IU/L (<50); Albumin 4.2 g/dL (3.5-5.0); Albumin Globulin Ratio 1.5 (1.0-2.8); Alkaline Phosphatase 61 U/L (38-126); Aspartate Aminotransferase 32 IU/L (17-59); BUN Creatinine Ratio 19.8 (6-22); Bilirubin Total 0.6 mg/dL (0.2-1.3); Blood Urea Nitrogen 17 mg/dL (9-20); Calcium 8.9 mg/dL (8.4-10.2); Carbon Dioxide 26 mmol/L (22-32); Chloride 103 mmol/L (98-107); Creatine Kinase 125 U/L (55-170); Estimated Glomerular Filt Rate > 60 mL/min (>60); Globulin 2.8 g/dL (1.7-4.1); Glucose 97 mg/dL (70-100); Lipase 97 U/L (23-300); Magnesium 1.9 mg/dL (1.6-2.3); Potassium 3.8 mmol/L (3.4-5.1); Sodium 136 mmol/L (137-145)
[2023-02-24 18:06] LABS: Troponin I < 0.012 ng/mL (0.01-0.034)
[2023-02-24 18:10] LABS: CKMB % Relative Index 0.8 % (1.5-5.0); Creatine Kinase MB 1.02 ng/mL (<2.37); HEMOLYSIS 19 (0-50)
--- NOTE | 2023-02-24 18:10 | ED.GENADULT ---
HPI - General Adult General Chief complaint: Hypertension Stated complaint: eye issues, headache, says stroke? 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 He presents today for additional workup of this. Blood pressure is significantly elevated, low-grade headache that he describes as frontal, not involving vision but felt behind both eyes. Also notes paraspinous and trapezius muscle spasm on the left side that is similar to prior radicular neck pain. He and his note that their daughter was recently diagnosed with a possible eye or brain tumor and these last 2 weeks have been busy with medical appointments and further evaluation for her. He reports no fevers, cough, abdominal pain, vomiting, diarrhea. Related Data Home Medications Medication Instructions Recorded Confirmed acyclovir 400 mg tablet 400 mg PO TID PRN Outbreak 08/27/18 09/05/22 ibuprofen 200 mg tablet (Advil) 400 mg PO PRN PRN pain 08/27/18 09/05/22 albuterol sulfate 90 mcg/actuation 1 inhalation inhalation Q4-6H PRN 12/07/19 09/05/22 breath activated powder inhaler Shortness Of Breath snoksll-[id number]-aitdnivz 250 1 tab PO Q4-6H PRN Migraine 12/07/19 09/05/22 mg-250 mg-65 mg tablet (Excedrin Headache Extra Strength) losartan 25 mg tablet 50 mg PO DAILY 12/07/19 02/24/23 epinephrine 0.3 mg/0.3 mL 0.3 mg IM X1 PRN Allergic Reaction 12/30/19 09/05/22 injection, auto-injector fluticasone propionate 50 1 spray intranasal DAILY 12/30/19 09/05/22 mcg/actuation nasal spray,suspension acetaminophen 500 mg capsule 1,000 mg PO BID 09/17/20 09/05/22 metformin 500 mg tablet,extended 500 mg PO BID 09/05/22 09/05/22 release 24 hr Allergies Allergy/AdvReac Type Severity Reaction Status Date / Time bee venom protein (honey bee) Allergy Severe Anaphylaxis Verified 02/24/23 16:56 Review of Systems Review of Systems Narrative: Remainder of complete review of systems is otherwise unremarkable except for that included in the HPI. Patient History Medical History Asthma Back pain Depression Epiploic appendagitis Genital herpes HTN (hypertension) Pneumonia Sleep apnea Surgical History H/O laminectomy (~08/28/20) H/O left wrist surgery (2013) History of ankle surgery History of surgery on wrist (2013) Hx of hand surgery Status post umbilical hernia repair, follow-up exam Family History Father Age: 70 Cancer Melanoma Grandfather Lung cancer Heart disease Grandfather Cancer Mother Hypertension Social History marital status: household members: spouse and children occupational status: employed Smoking Status: Former smoker alcohol intake: current substance use type: marijuana Smoking Status: Former smoker alcohol intake frequency: a few times a week Substance Use Type: marijuana Exam Initial Vital Signs Initial Vital Signs: Vital Signs Temperature 98.6 F 02/24/23 16:51 Pulse Rate 83 02/24/23 16:51 Respiratory Rate 17 02/24/23 16:51 Blood Pressure 222/125 H 02/24/23 16:51 Pulse Oximetry 97 02/24/23 16:51 Oxygen Delivery Method Room Air 02/24/23 16:51 General: Healthy appearing, in no acute distress. Able to give a complete and coherent history. Well-nourished well-developed HEENT: Moist mucous membranes, normal sclera with reactive pupils, extraocular eye movement is intact. No tenderness with percussion over maxillary sinuses Neck: No left paraspinous spasm tenderness in trapezius muscle spasm. Respiratory: Lungs are clear to auscultation, no wheezing no rales no rhonchi. Full and symmetrical air movement Cardiac: Regular rate and rhythm no murmurs no bruits Abdomen: Soft, nontender, good bowel tones, no flank pain Skin: Warm and dry, no rashes Neurologic: Grossly neurologically intact with no obvious asymmetries or abnormalities. NIH score is 0 Extremities: No trauma, well perfused Psych: Cooperative, appropriate insight and affect Course Orders Ordered: ED Orders 02/24/23 16:56 XR chest 1V Stat EKG-12 Lead Stat 02/24/23 17:19 CT angio head and neck Stat 02/24/23 17:20 Complete Blood Count AUTO DIFF Stat Comprehensive Metabolic Panel Stat Lipase Stat Magnesium Stat PTT Partial Thromboplastin Romeo Stat Prothrombin Time INR Stat Troponin & CK Cardiac Panel Stat Discontinued Medications Aspirin (Aspirin 81 Mg Chew Tab) 324 mg PO NOW ONE Stop: 02/24/23 16:57 Vital Signs Vital signs: Vital Signs - 8 hr 02/24/23 16:51 Temperature 98.6 F Pulse Rate 83 Respiratory Rate 17 Blood Pressure 222/125 H Pulse Oximetry 97 Oxygen Delivery Method Room Air Medical Decision Making Lab Data 02/24/23 17:20 02/24/23 17:20 Labs: Lab Results 02/24/23 02/24/23 02/24/23 Range/Units 17:20 17:20 17:20 WBC 7.2 (4.5-11.0) X10^3/uL RBC 4.99 (4.5-5.9) X10^6/uL Hgb 15.2 (13.5-17.5) g/dL Hct 43.7 (41-53) % MCV 87.6 (80-100) fL MCH 30.6 (26-34) PG MCHC 34.9 (30-36) % RDW 13.2 (11.6-14.8) % Plt Count 183 (150-400) X10^3/uL Neut % (Auto) 52.5 (50-75) % Lymph % (Auto) 33.7 (25-40) % Harrison % (Auto) 9.9 (3-14) % Eos % (Auto) 2.8 (2-4) % Baso % (Auto) 1.1 (0-2) % Neut # (Auto) 3800 (5810-9537) /uL Lymph # (Auto) 2400 (1657-5616) /uL Harrison # (Auto) 700 (0-900) /uL Eos # (Auto) 200 (0-450) /uL Baso # (Auto) 100 (0-100) /uL PT 12.1 (10.1-12.7) SECONDS INR 1.1 (0.9-1.3) APTT 33 (26-36) SECONDS Sodium 136 L (137-145) mmol/L Potassium 3.8 (3.4-5.1) mmol/L Chloride 103 (98-107) mmol/L Carbon Dioxide 26 (22-32) mmol/L BUN 17 (9-20) mg/dL Creatinine 0.86 (0.66-1.25) mg/dL Estimated GFR > 60 (>60) mL/min BUN/Creatinine Ratio 19.8 (6-22) Glucose 97 (70-100) mg/dL Calcium 8.9 (8.4-10.2) mg/dL Magnesium 1.9 (1.6-2.3) mg/dL Total Bilirubin 0.6 (0.2-1.3) mg/dL AST 32 (17-59) IU/L ALT 56 H (<50) IU/L Alkaline Phosphatase 61 (38-126) U/L Total Creatine Kinase 125 (55-170) U/L Total Protein 7.0 (6.3-8.2) g/dL Albumin 4.2 (3.5-5.0) g/dL Globulin 2.8 (1.7-4.1) g/dL Albumin/Globulin Ratio 1.5 (1.0-2.8) Lipase 97 (23-300) U/L MDM Narrative Medical decision making narrative: CC: Headache, outpatient concern for occult stroke. Since an acute problem, uncertain prognosis Complicating co-morbidities: Inadequately treated hypertension, significant increased stressors, sleep apnea, chronic headaches Data collected from: patient, Social determinants of health that may influence the patients condition: They do live on an [place], [place], making access to care bit more challenging Medical records reviewed: Surgery notes from May of 2022 are reviewed Differential considered: Stroke, migraine, meningitis, acute bacterial sinusitis, chronic sinusitis, intracranial mass, uncontrolled hypertension Exam documented above, pertinent findings include: Trapezius muscle spasm on the left reproducing the left neck and shoulder pain. Neurologic exam is entirely benign and NIH score is 0. Lab Test results independently reviewed as above. Pertinent findings: CBC is unremarkable with normal white count and no significant anemia Chemistries essentially unremarkable with minor elevation to ALT Independently reviewed EKG Sinus rhythm at a rate of 63 Normal intervals, normal axis. No acute ischemic changes Imaging studies independently reviewed: Chest x-ray with no acute findings CT angiogram of the head and neck with no acute findings or vascular stenosis/occlusion MRI of the brain stroke protocol shows no significant abnormalities and no evidence of prior stroke Treatments: Toradol for headache and additional oral losartan 50 mg for hypertension Re-evaluations: Headache is improving nicely, blood pressure is trending down. Discussion: 47-year-old gentleman presents with headache and ophthalmology concern for acute stroke based on dilated retinal exam. CT angiogram of the head and neck as well as MRI of the brain do not suggest any stroke acute or chronic findings. His blood pressure is elevated and certainly is at risk for stroke. Have recommended increasing his losartan to 50 mg b.i.d. and checking blood pressures regularly along with follow-up with his primary care doctor. Suggested that he probably should have a goal of 120/70 for blood pressure control. Both CT and MRI did suggest chronic sinusitis with no sign of acute bacterial infection. He does have antihistamines and I suggested he talk to his primary care doctor about nasal steroids. He does have a Neti pot and I encouraged him to use it frequently over the next number of days to see if it will help with the inflammation. Questions are answered, with no acute findings and no suggestion of recent or impending stroke, he is safe for discharge home. Discharge Plan Departure Patient Disposition: Home Clinical Impression: Headache, Hypertension, Chronic panethmoidal sinusitis Instructions: DI for High Blood Pressure Activity Restrictions/Additional Instructions: Thank you for coming in today There is no evidence of heart attack, significant infection or other abnormalities on blood work. Your EKG was reassuring You had a CT angiogram of your head and neck, this looks at blood vessels from the arch of your aorta all the way through the top of your head. There is no obvious narrowing or near occlusions. We also did an MRI of your brain looking specifically for stroke. It does not appear that you have had a stroke of any type. Your blood pressure is significantly elevated. Clearly been through quite a few stressors over the last number of weeks, however, your blood pressure does need to be better controlled to reduce your lifetime risk of stroke and heart disease. Please increase your losartan to 50 mg in the morning and 50 mg at night. Please keep track of your blood pressures and review this with your primary care doctor in a week or so. If you find that your blood pressure is consistently below 110/60 and you are dizzy or particularly fatigued than you can go back to simply [address] and MRI both showed chronic sinusitis. I suspect this contributing to your headaches. This is not bacterial. I would continue the [id number] antihistamine and aggressive use of your Neti pot. I would also talk to her primary care doctor about using steroid nasal spray and see if this might be helpful as well. If you find that you are getting worse or develop any new symptoms, please feel free to return to the emergency department for further evaluation. Prescriptions: No Action Excedrin Extra Strength 250-250-65 mg tablet 1 tab PO Q4-6H PRN (Reason: Migraine Headache) albuterol sulfate 90 mcg/actuation aerosol powdr breath activated 1 inhalation INHALATION Q4-6H PRN (Reason: Shortness Of Breath) losartan 25 mg tablet 50 mg PO DAILY ibuprofen [Advil] 200 mg Tablet 400 mg PO PRN PRN (Reason: pain) acyclovir 400 MG tablet 400 mg PO TID PRN (Reason: Outbreak) epinephrine 0.3 MG/0.3 ML auto-injector 0.3 mg IM X1 PRN (Reason: Allergic Reaction) fluticasone propionate 50 mcg/actuation [place],Suspension 1 spray INTRANASAL DAILY acetaminophen 500 mg Capsule 1,000 mg PO BID metformin 500 mg tablet extended release 24 hr 500 mg PO BID Referrals: Lucas Plata MD [Primary Care Provider] - Stand Alone Forms: Patient Portal/API
--- NOTE | 2023-02-24 18:31 | DI.MRI.S_ITS ---
PROCEDURE: MR HEAD/BRAIN WO CON INDICATIONS: retinal changes and headache, ? stroke TECHNIQUE: Noncontrast axial T1 spin echo, axial T2 fast spin echo, sagittal and axial FLAIR, coronal T2 fast spin echo, axial gradient echo, axial diffusion and ADC through the brain. COMPARISON: [facility], CT, CT ANGIO HEAD AND NECK, 02/24/2023, 17:31. FINDINGS: Image quality: Excellent. CSF Spaces: Basal cisterns are patent. No extra-axial fluid collections. Ventricles are normal in size and shape. Brain: No intracranial masses or hemorrhage. Collins/white matter interface is normal. Brainstem appears normal. Diffusion-weighted images demonstrate no acute ischemic insult. No chronic ischemic insults. Normal intravascular flow voids are present. Skull and face: Calvarium has normal marrow signal. Orbits appear normal. Sinuses: Moderate mucosal thickening is seen within the ethmoid air cells. Mild mucosal thickening is seen elsewhere within the paranasal sinuses. No abnormal fluid is seen within the mastoid air cells. IMPRESSION: No findings of acute or subacute infarction can be seen. Paranasal sinus disease again seen. Dictated by: James Cordero M.D. on 02/24/2023 at 18:07 Approved by: James Cordero M.D. on 02/24/2023 at 18:09
[2023-02-24] MEDS: ASPIRIN 81 MG CHEW TAB 324 MG PO (18:37)
[2023-02-24] MEDS: KETOROLAC 30 MG/ML VIAL 15 MG IV (18:37)
[2023-02-24] MEDS: LOSARTAN 50 MG TABLET PO (19:12)
== END 2023-02-24 19:52 | disposition home or self-care (01) ==
PROVIDERS: Emergency Medicine; Emergency Provider Emergency Medicine; Family Provider Family Medicine; PCP Family Medicine
DX: I10 Essential (primary) hypertension (principal); R51.9 Headache, unspecified; J32.2 Chronic ethmoidal sinusitis; H53.40 Unspecified visual field defects; R73.01 Impaired fasting glucose
CPT/HCPCS: 36415; 70496; 70498; 70551; 71045; 80053; 82550; 82553; 83036; 83690; 83735; 84484; 85025; 85610; 85651; 85730; 86140; 93005; 96374; 99284; 99285; J1885

== ENCOUNTER 2024-08-09 09:53 | Day surgery (SDC) | payer OTHER, SELFPAY ==
[2024-08-04 10:21] VITALS: BMI 40.8
[2024-08-09 10:28] VITALS: BMI 39.4
[2024-08-09] MEDS: ACETAMINOPHEN 325 MG TABLET 975 MG PO (10:41)
[2024-08-09] MEDS: LACTATED RINGERS 1,000 ML 42 ML IV (10:44)
--- NOTE | 2024-08-09 11:13 | SUR.OPER ---
Supine on padded OR bed, head on pillow, arms secured on padded arm boards at <90 degrees abduction, legs uncrossed, safety belt at thigh, tape over blanket over lower legs.
--- NOTE | 2024-08-09 11:40 | PM.HP.1 ---
History of Present Illness History of Present Illness Date Patient Seen: 08/09/24 Time Patient Seen: 11:40 Chief complaint: SDC Narrative: Ernesto is a 49 year old man with a recurrent umbilical hernia. See prior office notes for details. [facility] Medical History (Updated 08/04/24 @ 10:27 by Xiomy Farias RN) BMI 40.0-44.9, adult (07/2024) Depression Back pain Pneumonia HTN (hypertension) Genital herpes Sleep apnea Epiploic appendagitis Asthma Surgical History H/O laminectomy (~08/28/20) Status post umbilical hernia repair, follow-up exam H/O left wrist surgery (2013) History of surgery on wrist (2013) Hx of hand surgery History of ankle surgery Family History Father Age: 72 Cancer Melanoma Grandfather Lung cancer Heart disease Grandfather Cancer Mother Hypertension Social History marital status: household members: spouse and children lives independently: Yes occupational status: employed Smoking Status: Former smoker alcohol intake: current substance use type: marijuana Meds Home Medications and Allergies Home Medications Medication Instructions Recorded Confirmed Type acyclovir 400 mg tablet 400 mg PO TID PRN Outbreak 08/27/18 06/13/24 History ibuprofen 200 mg tablet (Advil) 400 mg PO PRN PRN pain 08/27/18 06/13/24 History albuterol sulfate 90 mcg/actuation 1 inhalation inhalation Q4-6H PRN 12/07/19 06/13/24 History breath activated powder inhaler Shortness Of Breath nujbiav-iyxswndfwxkmc-jvxbyrnd 250 1 tab PO Q4-6H PRN Migraine 12/07/19 06/13/24 History mg-250 mg-65 mg tablet (Excedrin Headache Extra Strength) losartan 25 mg tablet 50 mg PO DAILY 12/07/19 06/13/24 History epinephrine 0.3 mg/0.3 mL 0.3 mg IM X1 PRN Allergic Reaction 12/30/19 06/13/24 History injection, auto-injector fluticasone propionate 50 1 spray intranasal DAILY 12/30/19 06/13/24 History mcg/actuation nasal spray,suspension acetaminophen 500 mg capsule 1,000 mg PO BID 09/17/20 06/13/24 History metformin 500 mg tablet,extended 500 mg PO BID 09/05/22 06/13/24 History release 24 hr tirzepatide 2.5 mg/0.5 mL 2.5 mg SUBCUT QWEEK 08/08/24 08/08/24 History subcutaneous pen injector Allergies Allergy/AdvReac Type Severity Reaction Status Date / Time bee venom protein (honey bee) Allergy Severe Anaphylaxis Verified 06/13/24 14:29 Exam Narrative Exam Narrative: There is a 2-3 cm umbilical Assessment & Plan Assessment and plan (1) Recurrent umbilical hernia: Status: Acute Plan Open umbilical hernia repair with mesh Time-Based Coding :: [TOTAL MINUTES] spent with patient and on the chart (including review of chart, obtaining history, exam, reviewing outside data, placing orders, documenting exam and treatment plan, and counseling patient) on [DATE].
[2024-08-09] MEDS: CEFAZOLIN 1 GM VIAL 3 GM IV (12:05)
[2024-08-09] MEDS: BUPIVACAINE 0.5% W/ EPI (PF) 30 ML VIAL INJ (12:21)
[2024-08-09 13:17] VITALS: BP 131/80; PULSE 94; RESP 19; TEMP 36.3; O2SAT 98
--- NOTE | 2024-08-09 13:19 | PM.OP.1 ---
Operative Date/Time/Diagnoses Date of procedure: 08/09/24 Time of procedure: 13:20 Pre-op diagnosis: Recurrent umbilical hernia Post-op diagnosis: same Procedure & Clinicians Procedure: Open umbilical hernia repair with mesh Same procedure as scheduled: Yes Surgeon: Shravan Urbina Click Yes if Unassisted: Yes Anesthesia Type: General Operative Notes Procedure in detail: Ancef was administered. The patient was brought to the operating room, placed on the table in the supine position and general endotracheal anesthesia was induced. The abdomen was prepped and draped in the usual fashion. A time-out was performed. A 5 cm curvilinear incision was made inferior to the umbilicus. The hernia sac was dissected free from the surrounding subcutaneous adipose tissue. The sac was dissected off the umbilical stalk using a combination of cautery, sharp and blunt dissection. There was some old Ethibond suture that was cut out and removed. No old mesh could be palpated in the vicinity of the hernia. The hernia sac was opened and some incarcerated omentum was resected. The remainder of the hernia was then dissected free from the fascial ring and allowed to drop back down into the abdomen. The fascial defect was approximately 2 cm in diameter. The fascia was then closed transversely with multiple interrupted 0 Ethibond sutures. The subcutaneous adipose tissue was cleared off of the anterior sheath circumferentially about 2 cm in each direction. A piece of polypropylene mesh was trimmed to fit over the fascial closure and secured with Tisseel. Once the Tisseel was dried the umbilical skin was tacked down to the mesh with a single 3-0 Vicryl stitch. The skin was closed with multiple interrupted 3-0 Vicryl dermal sutures followed by a running 4 Monocryl subcuticular closure. Steri-Strips were applied and an abdominal binder was applied. EBL: 10 mL Post-operative Condition: stable Disposition: PACU
[2024-08-09 13:22] VITALS: BP 145/84; PULSE 85; RESP 18; O2SAT 99
[2024-08-09] MEDS: HYDROMORPHONE 1 MG INJ IV (13:23)
[2024-08-09 13:27] VITALS: BP 135/70; PULSE 74; RESP 13; O2SAT 94
[2024-08-09] MEDS: ONDANSETRON 4 MG/2 ML INJ IV (13:29)
--- NOTE | 2024-08-09 13:29 | SUR.PHASEI ---
Patient reported mild nausea, medicated with Monster.
[2024-08-09 13:34] VITALS: BP 136/73; PULSE 67; RESP 8; O2SAT 96
[2024-08-09] MEDS: OXYCODONE IR 5 MG TABLET PO ×2 (13:38→14:15)
[2024-08-09 13:48] VITALS: BP 136/69; PULSE 66; RESP 11; TEMP 36.2; O2SAT 97
[2024-08-09 13:51] VITALS: BP 126/62; PULSE 67; RESP 10; O2SAT 99
== END 2024-08-09 14:33 | disposition home or self-care (01) ==
PROVIDERS: Family Provider Family Medicine; PCP Family Medicine; Referring Provider Surgery; Visit Provider Surgery
PROC: (CPT 49614; principal; 2024-08-09 11:45)
DX: K42.0 Umbilical hernia with obstruction, without gangrene (principal)
CPT/HCPCS: 49614; J0690; J1100; J1171; J1885; J2250; J2405; J2704; J3010

== ENCOUNTER → 2024-08-24 10:30 | Outpatient (CLI) | payer OTHER, SELFPAY ==
--- NOTE | 2024-08-24 10:31 | DI.US.S_ITS ---
PROCEDURE: US SCROTUM INDICATIONS: LEFT TESTICULAR SUPERIOR LUMP TECHNIQUE: Real-time scanning was performed of the scrotum and testicles, with image documentation. Color and pulse Doppler interrogation was performed of both testicles. COMPARISON: None. FINDINGS: Right: Testicle is normal in size at 4.3 x 2.9 x 1.9 cm, and homogenous in echotexture. There is a small cystic cluster in the epididymal head measuring 7 mm. Normal epididymal vascularity. No hydrocele or varicoceles. Overlying scrotal skin is normal in thickness. Left: Testicle is normal in size at 4.0 x 2.9 x 2.2 cm, and homogeneous in echotexture. Well-defined unilocular cyst within the left epididymal head measures 1.5 by 2.0 x 1.0 cm and corresponds to the patient's palpable abnormality. Left epididymis is otherwise normal in morphology and vascularity. No hydrocele or varicoceles. Overlying scrotal skin is normal in thickness. Doppler: Color and pulse Doppler demonstrate normal and symmetric arterial flow in both testicles. IMPRESSION: 2.0 cm simple left epididymal head cyst corresponds to the patient's palpable abnormality. Incidental note of clustered cysts in the right epididymal head measuring up to 7 mm in total. Dictated by: Tarah Harkins M.D. on 08/24/2024 at 22:04 Approved by: Tarah Harkins M.D. on 08/24/2024 at 22:06
== END ==
PROVIDERS: Family Provider Family Medicine; PCP Family Medicine; Referring Provider Family Medicine; Visit Provider Family Medicine
DX: N50.89 Other specified disorders of the male genital organs (principal); N50.3 Cyst of epididymis
CPT/HCPCS: 76870

== ENCOUNTER → 2025-01-07 09:34 | Outpatient (CLI) | payer OTHER, SELFPAY ==
--- NOTE | 2025-01-07 09:36 | DI.MRI.S_ITS ---
PROCEDURE: MR LUMBAR SPINE WO CON INDICATIONS: RADICULOPATHY,LUMBAR REGION TECHNIQUE: Noncontrast sagittal T1 spin echo and T2 fast echo, sagittal STIR, and T2 fast spin echo through the lumbar spine. In cases with scoliosis, additional coronal T2 fast spin echo may be performed. COMPARISON: [facility] ([place]), CR, XR LUMBAR SPINE 2-3V, 12/13/2024, 14:00. FINDINGS: Image quality: Excellent. Alignment and Curvature: There is normal bony alignment. Bone Marrow: Marrow is of normal overall signal. No acute vertebral body compression fractures. Spinal Cord: Conus medullaris terminates at the L1 level. Visualized cord demonstrates normal signal and size. Paraspinous Soft Tissues: No paravertebral masses. Discs: Minimal to mild desiccation at L4-5, L5-S1. T12-L1: Minimal disc bulge without spinal stenosis or foraminal narrowing. L1-L2: No disc bulge or foraminal narrowing. Minimal canal narrowing. L2-L3: Mild disc bulge with minimal canal narrowing. No foraminal narrowing. L3-L4: Minimal disc bulge with mild spinal stenosis. No foraminal narrowing. Minimal epidural lipomatosis. L4-L5: Minimal disc bulge without spinal stenosis. Mtnw-nr-ezufsewz bilateral foraminal narrowing with facet hypertrophy. L5-S1: Mild disc bulge including right foraminal component. No spinal stenosis. Moderate right foraminal narrowing. Facet hypertrophy. 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 Foraminal narrowing most prominent at L5-S1 secondary to disc bulge as well as facet hypertrophy. Dictated by: Roro Thomson M.D. on 01/09/2025 at 11:39 Approved by: Roro Thomson M.D. on 01/09/2025 at 11:57
== END ==
PROVIDERS: Family Provider Family Medicine; PCP Family Medicine; Referring Provider Family Medicine; Visit Provider Family Medicine
DX: M51.16 Intervertebral disc disorders with radiculopathy, lumbar region (principal); M47.26 Other spondylosis with radiculopathy, lumbar region; M48.061 Spinal stenosis, lumbar region without neurogenic claudication; M51.17 Intervertebral disc disorders with radiculopathy, lumbosacral region; M47.27 Other spondylosis with radiculopathy, lumbosacral region; M48.07 Spinal stenosis, lumbosacral region
CPT/HCPCS: 72148

== ENCOUNTER → 2025-04-11 09:26 | Outpatient (CLI) | payer OTHER, SELFPAY ==
--- NOTE | 2025-04-11 09:29 | DI.US.S_ITS ---
PROCEDURE: US CAROTID DOPPLER BI INDICATIONS: ABNORMAL CT TECHNIQUE: Color and pulse Doppler interrogation was performed of both carotid systems, with image documentation and velocity measurements. COMPARISON: None. FINDINGS: Stenosis calculations are based on SRU (Society of Radiologists in Ultrasound) criteria. Right side: Brachial blood pressure: 148/95 mm Hg. Common carotid artery peak systolic velocity: 79 cm/sec. Internal carotid artery peak systolic velocity: 72 cm/sec. Internal carotid artery end diastolic velocity: 20 cm/sec. External carotid artery peak systolic velocity: 64 cm/sec. ICA/CCA peak systolic ratio: 0.91 . Collins scale imaging description: Unremarkable Percent internal carotid artery stenosis: 0 . Vertebral artery: Flow direction is antegrade. Left side: Brachial blood pressure: 148/96 mm Hg. Common carotid artery peak systolic velocity: 102 cm/sec. Internal carotid artery peak systolic velocity: 86 cm/sec. Internal carotid artery end diastolic velocity: 20 cm/sec. External carotid artery peak systolic velocity: 59 cm/sec. ICA/CCA peak systolic ratio: 0.84 . Collins scale imaging description: Unremarkable Percent internal carotid artery stenosis: 0 . Vertebral artery: Flow direction is antegrade. IMPRESSION: Unremarkable duplex carotid ultrasound. No stenosis Approved by: Silas Brito M.D. on 04/11/2025 at 17:26
== END ==
LOC: US 09:27
PROVIDERS: Family Provider Family Medicine; PCP Family Medicine; Referring Provider Family Medicine; Visit Provider Family Medicine
DX: R93.89 Abnormal findings on diagnostic imaging of other specified body structures (principal)
CPT/HCPCS: 93880

== ENCOUNTER → 2025-05-03 09:02 | Outpatient (CLI) | payer OTHER, SELFPAY ==
--- NOTE | 2025-05-03 09:04 | DI.MRI.S_ITS ---
PROCEDURE: MR CERVICAL SPINE WO CON INDICATIONS: LT CERVICAL RADICULOPATHY TECHNIQUE: Noncontrast sagittal T1 spin echo and T2 fast spin echo, sagittal STIR, foraminal oblique sagittal T2 fast spin echo, and axial gradient echo or T2 fast spin echo through the cervical spine. COMPARISON: [facility], MR, MR CERVICAL SPINE WO CON, 03/05/2020, 16:11. FINDINGS: Image quality: Excellent. Alignment and Curvature: There is normal bony alignment. Bone Marrow: Marrow demonstrates normal overall signal. Spinal Cord: Visualized spinal cord has normal size and signal. No cerebellar tonsillar herniation. Paraspinous Soft Tissues: No paravertebral masses. Prevertebral soft tissues are normal in thickness. C2-C3: Loss of disc signal. No central stenosis. No neural foraminal narrowing. No neural compression. C3-C4: Loss of disc signal. No central stenosis. No neural foraminal narrowing. No neural compression. C4-C5: Loss of disc signal. Mild, diffuse disc bulge. No central stenosis. Mild left neural foraminal narrowing. No neural compression. C5-C6: Loss of disc signal. Moderate, diffuse disc bulge. Mild to moderate narrowing of the central canal. Bilateral uncovertebral joint hypertrophy. Severe bilateral neural foraminal narrowing with compression of the C6 nerve roots. C6-C7: Loss of disc signal and height. Mild, diffuse disc bulge. Severe bilateral uncovertebral joint hypertrophy. Mild narrowing of the central canal. Severe bilateral neural foraminal narrowing with compression of the C7 nerve roots. C7-T1: Normal appearance. IMPRESSION: Multilevel degenerative disc disease. Multilevel uncovertebral arthropathy. No severe central canal stenosis. Severe bilateral C5-C6 and C6-C7 neural foraminal stenosis with compression of the bilateral C6 and C7 nerve roots. Dictated by: Isamar Brown MD, PhD on 05/03/2025 at 11:42 Approved by: Isamar Brown MD, PhD on 05/03/2025 at 11:47
== END ==
PROVIDERS: Family Provider Family Medicine; PCP Family Medicine; Referring Provider Family Medicine; Visit Provider Family Medicine
DX: M47.22 Other spondylosis with radiculopathy, cervical region (principal); M50.121 Cervical disc disorder at C4-C5 level with radiculopathy; M48.02 Spinal stenosis, cervical region
CPT/HCPCS: 72141